=== PATIENT | male | born 1940 | race Caucasian/White ===

== ENCOUNTER → 2016-10-06 | Outpatient (CLI) | payer MEDICARE, OTHER ==
[~2016-10-06] MED LIST: AMBI12.5 PO; ATEN-100 PO; DULE200A INH; OSTETAB2 PO; PERC5TAB12 PO; SERO100T PO; SPIRCAP INH; TAB-TAB PO; ZETI10TA5 PO; ZOCO40TA PO
[2016-10-06 13:28] LABS: BACTERIA, URINE RARE /hpf; BLOOD, URINE NEG (NEG); GLUCOSE,URINE NEG (NEG); HYALINE CAST, URINE 1 /lpf (RARE); KETONE, URINE NEG (NEG); MUCUS URINE FEW /lpf (OCC); NITRITE,URINE NEG (NEG); SQUAMOUS EPITHELIAL CELL URINE <1 /hpf (0-5); URINE COLOR YELLOW (YELLW/STRAW)
[2016-10-06 13:52] LABS: MICRO ALBUMIN RANDOM URINE RAW 15.6 MG/L (0.0-30.0)
[2016-10-06 14:01] LABS: ALKALINE PHOSPHATASE 77 U/L (45-117); ALT (GPT) 42 U/L (12-78); ANION GAP 7 MEQ/L (5-15); AST (GOT) 24 U/L (15-37); BICARBONATE 28.6 MEQ/L (21.0-32.0); BLOOD UREA NITROGEN 14 MG/DL (7-18); CHLORIDE 106 MEQ/L (98-107); GLOMERULAR FILTRATION RATE 70 ML/MIN (>89); GLUCOSE,FASTING 113 MG/DL (74-99); HDL CHOLESTEROL 43.5 MG/DL (40.0-60.0); LDL CHOLESTEROL 89 MG/DL (0-99); POTASSIUM 4.8 MEQ/L (3.5-5.1); SODIUM (NA) 142 MEQ/L (136-145); TOTAL BILIRUBIN ADULT 0.5 MG/DL (0.2-1.0)
[2016-10-06 14:30] LABS: AUTOMATED NEUTROPHIL # 2.9 TH/MM3 (1.8-7.7); BASOPHIL % 0.6 % (0.0-2.0); EOSINOPHIL # 0.1 TH/MM3 (0-0.4); EOSINOPHIL % 2.3 % (0.0-4.0); HEMATOCRIT 42.4 % (39.0-51.0); HEMO FLAGS DIFF FINAL; LYMPH % 30.9 % (9.0-44.0); LYMPHOCYTE # 1.6 TH/MM3 (1.0-4.8); MEAN CELL VOLUME 91.8 FL (80.0-100.0); MEAN CORPUSCULAR HEMOGLOBIN 31.5 PG (27.0-34.0); MEAN CORPUSCULAR HGB CONC 34.3 % (32.0-36.0); MONO % 11.2 % (0.0-8.0); PLATELET COUNT 183 TH/MM3 (150-450); RED BLOOD COUNT 4.62 MIL/MM3 (4.50-5.90); RED CELL DISTRIBUTION WIDTH 13.5 % (11.6-17.2); WHITE BLOOD COUNT 5.3 TH/MM3 (4.0-11.0)
== END ==
LOC: PLAB 10:29
PROVIDERS: ATTEND Internal Medicine
DX: I25.10 Atherosclerotic heart disease of native coronary artery without angina pectoris (principal); J44.9 Chronic obstructive pulmonary disease, unspecified; E11.9 Type 2 diabetes mellitus without complications; E78.00 Pure hypercholesterolemia, unspecified; I10 Essential (primary) hypertension; M19.90 Unspecified osteoarthritis, unspecified site; Z79.899 Other long term (current) drug therapy
CPT/HCPCS: 36415; 80053; 80061; 81001; 82043; 84443; 85025

== ENCOUNTER → 2017-05-16 | Outpatient (CLI) | payer MEDICARE, OTHER ==
[2017-05-16 11:52] LABS: BLOOD, URINE NEG (NEG); GLUCOSE,URINE NEG (NEG); HYALINE CAST, URINE 3 /lpf (RARE); KETONE, URINE NEG (NEG); MUCUS URINE FEW /lpf (OCC); NITRITE,URINE NEG (NEG); PH, URINE 6.5 (5.0-8.5); TRANSITIONAL EPI CELLS, URINE <1 /hpf; URINE COLOR YELLOW (YELLW/STRAW)
[2017-05-16 11:54] LABS: COMMENT (UR) CULT NOT INDICATED; CULTURE IF INDICATED CULT NOT INDICATED
[2017-05-16 11:56] LABS: AUTOMATED NEUTROPHIL # 3.3 TH/MM3 (1.8-7.7); BASOPHIL % 0.4 % (0.0-2.0); EOSINOPHIL # 0.1 TH/MM3 (0-0.4); EOSINOPHIL % 2.1 % (0.0-4.0); HEMATOCRIT 44.1 % (39.0-51.0); LYMPH % 35.7 % (9.0-44.0); LYMPHOCYTE # 2.2 TH/MM3 (1.0-4.8); MEAN CELL VOLUME 90.2 FL (80.0-100.0); MEAN CORPUSCULAR HEMOGLOBIN 31.3 PG (27.0-34.0); MEAN CORPUSCULAR HGB CONC 34.7 % (32.0-36.0); MONO % 9.8 % (0.0-8.0); PLATELET COUNT 166 TH/MM3 (150-450); RED BLOOD COUNT 4.89 MIL/MM3 (4.50-5.90); RED CELL DISTRIBUTION WIDTH 13.2 % (11.6-17.2); WHITE BLOOD COUNT 6.3 TH/MM3 (4.0-11.0)
[2017-05-16 12:00] LABS: HEMO FLAGS AUTO DIFF
[2017-05-16 12:02] LABS: ANION GAP 6 MEQ/L (5-15); AST (GOT) 29 U/L (15-37); BICARBONATE 28.5 MEQ/L (21.0-32.0); BLOOD UREA NITROGEN 12 MG/DL (7-18); CHLORIDE 106 MEQ/L (98-107); GLOMERULAR FILTRATION RATE 72 ML/MIN (>89); GLUCOSE,FASTING 108 MG/DL (74-99); SODIUM (NA) 140 MEQ/L (136-145)
[2017-05-16 12:14] LABS: MICRO ALBUMIN RANDOM URINE RAW 19.2 MG/L (0.0-30.0)
[2017-05-16 12:14] LABS: ALKALINE PHOSPHATASE 75 U/L (45-117); ALT (GPT) 46 U/L (12-78); HDL CHOLESTEROL 43.1 MG/DL (40.0-60.0); LDL CHOLESTEROL 59 MG/DL (0-99); TOTAL BILIRUBIN ADULT 0.5 MG/DL (0.2-1.0)
[2017-05-16 12:47] LABS: PLATELET ESTIMATE SMEAR NORMAL (NORMAL); PLATELET MORPHOLOGY NORMAL (NORMAL); SCAN/DIFF AUTO DIFF CONFIRMED
[2017-05-16 14:13] LABS: HEMOGLOBIN A1a 1.2 %; HEMOGLOBIN Ao 84.5 %; HEMOGLOBIN P3 3.7 %
== END ==
LOC: PLAB 07:56
PROVIDERS: ATTEND Internal Medicine
DX: E11.9 Type 2 diabetes mellitus without complications (principal); E78.5 Hyperlipidemia, unspecified; I10 Essential (primary) hypertension
CPT/HCPCS: 36415; 80053; 80061; 81001; 82043; 83036; 84443; 85025

== ENCOUNTER → 2017-10-03 | Outpatient (CLI) | payer MEDICARE, OTHER ==
[2017-10-03 09:44] LABS: AUTOMATED NEUTROPHIL # 3.6 TH/MM3 (1.8-7.7); BASOPHIL % 0.5 % (0.0-2.0); EOSINOPHIL # 0.1 TH/MM3 (0-0.4); EOSINOPHIL % 2.2 % (0.0-4.0); HEMATOCRIT 44.2 % (39.0-51.0); HEMOGLOBIN 15.6 GM/DL (13.0-17.0); LYMPH % 34.3 % (9.0-44.0); LYMPHOCYTE # 2.3 TH/MM3 (1.0-4.8); MEAN CELL VOLUME 89.6 FL (80.0-100.0); MEAN CORPUSCULAR HEMOGLOBIN 31.6 PG (27.0-34.0); MEAN CORPUSCULAR HGB CONC 35.2 % (32.0-36.0); MEAN PLATELET VOLUME 8.2 FL (7.0-11.0); MONO % 8.9 % (0.0-8.0); MONOCYTE # 0.6 TH/MM3 (0-0.9); NEUT % 54.1 % (16.0-70.0); PLATELET COUNT 188 TH/MM3 (150-450); RED BLOOD COUNT 4.93 MIL/MM3 (4.50-5.90); RED CELL DISTRIBUTION WIDTH 13.5 % (11.6-17.2); WHITE BLOOD COUNT 6.6 TH/MM3 (4.0-11.0)
[2017-10-03 09:53] LABS: BILIRUBIN, URINE NEG (NEG); BLOOD, URINE NEG (NEG); GLUCOSE,URINE NEG (NEG); HYALINE CAST, URINE 3 /lpf (RARE); KETONE, URINE NEG (NEG); MUCUS URINE FEW /lpf (OCC); NITRITE,URINE NEG (NEG); PH, URINE 6.5 (5.0-8.5); URINE COLOR YELLOW (YELLW/STRAW); URINE LEUKOCYTE ESTERASE NEG (NEG)
[2017-10-03 10:15] LABS: AST (GOT) 40 U/L (15-37); BLOOD UREA NITROGEN 13 MG/DL (7-18); CALCIUM 9.6 MG/DL (8.5-10.1); CHLORIDE 104 MEQ/L (98-107); CREATININE 1.03 MG/DL (0.60-1.30); GLOMERULAR FILTRATION RATE 70 ML/MIN (>89); GLUCOSE,FASTING 117 MG/DL (74-99); SODIUM (NA) 138 MEQ/L (136-145)
[2017-10-03 10:16] LABS: ALT (GPT) 49 U/L (12-78); CHOLESTEROL 128 MG/DL (120-200)
[2017-10-03 10:26] LABS: ALKALINE PHOSPHATASE 72 U/L (45-117); CHOLESTEROL/ HDL RATIO 3.64 RATIO; HDL CHOLESTEROL 35.1 MG/DL (40.0-60.0); LDL CHOLESTEROL 58 MG/DL (0-99); TOTAL BILIRUBIN ADULT 0.6 MG/DL (0.2-1.0); TOTAL PROTEIN 6.9 GM/DL (6.4-8.2); TRIGLYCERIDES 176 MG/DL (42-150)
[2017-10-03 17:01] LABS: HEMOGLOBIN A1C 6.2 % (4.3-6.0)
== END ==
LOC: PLAB 07:55
DX: E78.5 Hyperlipidemia, unspecified (principal); E11.9 Type 2 diabetes mellitus without complications; I10 Essential (primary) hypertension
CPT/HCPCS: 36415; 80053; 80061; 81001; 82043; 83036; 84443; 85025

== ENCOUNTER → 2017-10-06 | Outpatient (CLI) | payer MEDICARE, OTHER | LOC: PHRSP 08:11 | PROVIDERS: ATTEND Internal Medicine | DX: J44.9 Chronic obstructive pulmonary disease, unspecified (principal) | CPT/HCPCS: 94618 ==

== ENCOUNTER 2017-12-06 11:19 | Inpatient (IN) | payer MEDICARE, OTHER ==
[2017-12-06] VITALS (13 sets, daily range): BP systolic 141–154; BP diastolic 84–100; PULSE 90–120; RESP 18–20; TEMP 97.9–98.5; O2SAT 96
[~2017-12-06] VITALS: Ht 180.3 cm; Wt 95.0 kg
[2017-12-06] MEDS ORDERED: SENNOSIDES 8.6 MG TAB PO PRN (13:15)
[2017-12-06] MEDS ORDERED: LACTULOSE SYRUP 20 GM/30 ML CUP PO PRN (13:15)
[2017-12-06] MEDS ORDERED: MAGNESIUM HYDROXIDE SUSP 30 ML CUP PO PRN ×2 (13:15→14:15)
[2017-12-06] MEDS ORDERED: SODIUM CHLORIDE 0.9% FLUSH 10 ML FLUSH IV FLUSH PRN (13:15)
[2017-12-06] MEDS ORDERED: NALOXONE HCL 0.4 MG/ML AMP IV PUSH PRN (13:15)
[2017-12-06] MEDS ORDERED: BISACODYL 10 MG SUPP RECTAL PRN (13:15)
[2017-12-06 13:58] LABS: AUTOMATED NEUTROPHIL # 5.5 TH/MM3 (1.8-7.7); BASOPHIL % 0.4 % (0.0-2.0); EOSINOPHIL # 0.2 TH/MM3 (0-0.4); EOSINOPHIL % 2.1 % (0.0-4.0); HEMATOCRIT 45.4 % (39.0-51.0); HEMOGLOBIN 15.8 GM/DL (13.0-17.0); LYMPH % 26.8 % (9.0-44.0); LYMPHOCYTE # 2.5 TH/MM3 (1.0-4.8); MEAN CELL VOLUME 90.9 FL (80.0-100.0); MEAN CORPUSCULAR HEMOGLOBIN 31.7 PG (27.0-34.0); MEAN CORPUSCULAR HGB CONC 34.8 % (32.0-36.0); MEAN PLATELET VOLUME 7.4 FL (7.0-11.0); MONO % 10.8 % (0.0-8.0); NEUT % 59.9 % (16.0-70.0); PLATELET COUNT 202 TH/MM3 (150-450); RED CELL DISTRIBUTION WIDTH 14.1 % (11.6-17.2); WHITE BLOOD COUNT 9.2 TH/MM3 (4.0-11.0)
--- NOTE | 2017-12-06 14:14 | RADRPT ---
EXAM DATE/TIME: 12/06/2017 13:46 [place] COMPARISON: No previous studies available for comparison. INDICATIONS : Evaluate diaphragm. Patient states he has had increased heart rate off and on x 1 year, but has incre ased in last 2 days since patient had a colonoscopy, MEDICAL HISTORY : None. SURGICAL HISTORY : None. ENCOUNTER: Initial ACUITY: >1 year PAIN SCORE: 0/10 LOCATION: Bilateral chest FINDINGS: A single view of the chest demonstrates the lungs to be symmetrically aerated without evidence of mas s, infiltrate or effusion. The cardiomediastinal contours are unremarkable. Osseous structures are intact. CONCLUSION: No acute disease. Stanton Gurrola MD on December 06, 2017 at 14:11 Board Certified Radiologist. This report was verified electronically.
[2017-12-06] MEDS ORDERED: ALUMINUM/MAGNESIUM/SIMETH 30 ML CUP PO PRN (14:15)
[2017-12-06] MEDS ORDERED: TEMAZEPAM 15 MG CAP PO PRN (14:15)
[2017-12-06] MEDS ORDERED: ACETAMINOPHEN 325 MG TAB PO PRN (14:15)
[2017-12-06] MEDS ORDERED: HEPARIN-D5W 25,000 U/250 ML 250 ML IV PRN ×3 (14:30→17:00)
[2017-12-06] MEDS ORDERED: HEPARIN SODIUM - IV 10,000 UNITS/10 ML VIAL IV ONE ×2 (14:30→16:30)
--- NOTE | 2017-12-06 14:46 | HHI.HP ---
HPI Service [facility] Primary Care Physician Non-Staff Admission Diagnosis Diagnoses: Travel History International Travel<30 Days: No Contact w/Intl Traveler <30 Da: No History of Present Illness 77-year-old male with history of SVT, hypertension, COPD who presents with a 1 day history of tachycardia, lightheadedness. He is sent in by cardiology as a direct admit for new onset atrial fibrillation. Patient had a colonoscopy yesterday, reportedly had episode of tachycardia in the 130s after procedure, which came down to 90s after taking an extra atenolol. Patient denies any chest pain or shortness of breath. He does feel lightheaded, and somewhat generally fatigued. Denies any fevers, chills, chest pain, nausea, vomiting Review of Systems Performed and negative except for HPI and past medical history. 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 Reported Medications Cardizem CD 180 mg daily Atenolol 50 mg daily Aspirin 81 mg daily Spiriva HandiHaler 18 mcg once daily Dulera 1005 mcg/ACT aerosol twice a day Seroquel 100 mg at bedtime Ambien CR 12 point 5 at night Gabapentin 100 mg at bedtime Rosuvastatin 10 mg once a day Vitamin B12 1000 mcg daily. Allergies: Coded Allergies: hydrocodone (Unverified Allergy, Severe, severe itching-feels like bugs under skin, 04/05/17) MAY TAKE HYDROCODONE IF PRE MEDICATED WITH BENADRYL Family History Family history reviewed with patient and found to be currently noncontributory. Social History Patient smoked 2 packs per day for 44 years, quitting in 1997. Patient quit drinking alcohol in 1983. Denies any illicit drugs. Physical Exam Physical Exam GENERAL: This is a well-nourished, well-developed patient, in no apparent distress. SKIN: No rashes, ecchymoses or lesions. Cool and dry. HEAD: Atraumatic. Normocephalic. No temporal or scalp tenderness. EYES: Pupils equal round and reactive. Extraocular motions intact. No scleral icterus. No injection or drainage. ENT: Nose without bleeding, purulent drainage or septal hematoma. Throat without erythema, tonsillar hypertrophy or exudate. Uvula midline. Airway patent. NECK: Trachea midline. No JVD or lymphadenopathy. Patient with very tender right neck, precluding examination. No erythema. Patient reports this is chronic. Left side supple, nontender, no meningeal signs. CARDIOVASCULAR: Irregularly irregular rhythm. Tachycardic. No murmurs, gallops , or rubs. RESPIRATORY: Clear to auscultation. Breath sounds equal bilaterally. No wheezes , rales, or rhonchi. GASTROINTESTINAL: Abdomen soft, non-tender, nondistended. No hepato-splenomegaly , or palpable masses. No guarding. MUSCULOSKELETAL: Extremities without clubbing, cyanosis, or edema. No joint tenderness, effusion, or edema noted. No calf tenderness. Negative Homans sign bilaterally. NEUROLOGICAL: Awake and alert. Cranial nerves II through XII intact. Motor and sensory grossly within normal limits. Five out of 5 muscle strength in all muscle groups. Normal speech. Laboratory Laboratory Tests Test 12/06/17 13:44 White Blood Count 9.2 Red Blood Count 5.00 Hemoglobin 15.8 Hematocrit 45.4 Mean Corpuscular Volume 90.9 Mean Corpuscular Hemoglobin 31.7 Mean Corpuscular Hemoglobin Concent 34.8 Red Cell Distribution Width 14.1 Platelet Count 202 Mean Platelet Volume 7.4 Neutrophils (%) (Auto) 59.9 Lymphocytes (%) (Auto) 26.8 Monocytes (%) (Auto) 10.8 Eosinophils (%) (Auto) 2.1 Basophils (%) (Auto) 0.4 Neutrophils # (Auto) 5.5 Lymphocytes # (Auto) 2.5 Monocytes # (Auto) 1.0 Eosinophils # (Auto) 0.2 Basophils # (Auto) 0.0 CBC Comment DIFF FINAL Differential Comment Result Diagram: 12/06/17 1344 Caprini VTE Risk Assessment Caprini VTE Risk Assessment: Mod/High Risk (score >= 2) Caprini Risk Assessment Model Point Value = 1 Point Value = 2 Point Value = 3 Point Value = 5 Age 41-60 Minor surgery BMI > 25 kg/m2 Swollen legs Varicose veins or History of unexplained or recurrent spontaneous Oral contraceptives or hormone replacement Sepsis (< 1 month) Serious lung disease, including pneumonia (< 1 month) Abnormal pulmonary function Acute myocardial infarction Congestive heart failure (< 1 month) History of inflammatory bowel disease Medical patient at bed rest Age 61-74 Arthroscopic surgery Major open surgery (> 45 min) Laparoscopic surgery (> 45 min) Malignancy Confined to bed (> 72 hours) Immobilizing plaster cast Central venous access Age >= 75 History of VTE Family history of VTE Factor V Leiden Prothrombin [id number] Lupus anticoagulant Anticardiolipin antibodies Elevated serum homocysteine Heparin-induced thrombocytopenia Other congenital or acquired thrombophilia Stroke (< 1 month) Elective arthroplasty Hip, pelvis, or leg fracture Acute spinal cord injury (< 1 month) Prophylaxis Regimen Total Risk Factor Score Risk Level Prophylaxis Regimen 0-1 Low Early ambulation 2 Moderate Order ONE of the following: *Sequential Compression Device (SCD) *Heparin 5000 units SQ BID 3-4 Higher Order ONE of the following medications: *Heparin 5000 units SQ TID *Enoxaparin/Lovenox 40 mg SQ daily (WT < 150 kg, CrCl > 30 mL/min) *Enoxaparin/Lovenox 30 mg SQ daily (WT < 150 kg, CrCl > 10-29 mL/min) *Enoxaparin/Lovenox 30 mg SQ BID (WT < 150 kg, CrCl > 30 mL/min) AND/OR *Sequential Compression Device (SCD) 5 or more Highest Order ONE of the following medications: *Heparin 5000 units SQ TID (Preferred with Epidurals) *Enoxaparin/Lovenox 40 mg SQ daily (WT < 150 kg, CrCl > 30 mL/min) *Enoxaparin/Lovenox 30 mg SQ daily (WT < 150 kg, CrCl > 10-29 mL/min) *Enoxaparin/Lovenox 30 mg SQ BID (WT < 150 kg, CrCl > 30 mL/min) AND *Sequential Compression Device (SCD) Assessment and Plan Assessment and Plan //New onset atrial fibrillation -Chest x-ray ordered and no acute findings. EKG ordered and pending. Stat labs. Start heparin drip. Pending home medications to be entered. Cardiology consulted. Appreciate assistance. Start on heparin drip. //Hypertension. Blood pressures septal. Continue home medications //COPD. Continue home inhalers //Hyperlipidemia. Chronic. Continue home medications when reconciled. Discussed Condition With Patient, nurse, Dr. Hanson Physician Certification 2 Midnight Certification Type: Admission for Inpatient Services Order for Inpatient Services The services are ordered in accordance with Medicare regulations or non- Medicare payer requirements, as applicable. In the case of services not specified as inpatient-only, they are appropriately provided as inpatient services in accordance with the 2-midnight benchmark. Estimated LOS (days): 2 days is the estimated time the patient will need to remain in the hospital, assuming treatment plan goals are met and no additional complications. Post-Hospital Plan: Not yet determined Joel Blackmon MD Dec 06, 2017 14:46
[2017-12-06] MEDS ORDERED: RESP: IPRATROPIUM 0.5 MG/2.5 ML NEB NEB PRN (15:00)
[2017-12-06] MEDS ORDERED: DILTIAZEM HCL 25 MG/5 ML VIAL IV PUSH ONE (15:00)
[2017-12-06] MEDS ORDERED: DILTIAZEM INJ 125 MG in SODIUM CHLORIDE 0.9% INJ 100 ML IV PRN (15:00)
[2017-12-06] MEDS ORDERED: XARE10TA PO (15:55)
[2017-12-06] MEDS ORDERED: HEPARIN SODIUM - IV 10,000 UNITS/10 ML VIAL IV PRN ×3 (16:30→20:30)
[2017-12-06] MEDS ORDERED: METOPROLOL TARTRATE 5 MG/5 ML VIAL IV PUSH PRN (16:30)
[2017-12-06 18:45] LABS: HEMATOCRIT 41.6 % (39.0-51.0); HEMOGLOBIN 14.4 GM/DL (13.0-17.0); MEAN CELL VOLUME 90.2 FL (80.0-100.0); MEAN CORPUSCULAR HEMOGLOBIN 31.3 PG (27.0-34.0); MEAN CORPUSCULAR HGB CONC 34.7 % (32.0-36.0); MEAN PLATELET VOLUME 7.7 FL (7.0-11.0); PLATELET COUNT 190 TH/MM3 (150-450); RED BLOOD COUNT 4.62 MIL/MM3 (4.50-5.90); RED CELL DISTRIBUTION WIDTH 14.2 % (11.6-17.2); WHITE BLOOD COUNT 7.8 TH/MM3 (4.0-11.0)
[2017-12-06 19:05] LABS: INTERNATIONAL NORMALIZED RATIO 1.2 RATIO; PROTHROMBIN TIME - PATIENT 12.2 SEC (9.8-11.6)
[2017-12-06 19:19] LABS: BILIRUBIN, URINE NEG (NEG); BLOOD, URINE NEG (NEG); GLUCOSE,URINE NEG (NEG); HYALINE CAST, URINE 5 /lpf (RARE); KETONE, URINE NEG (NEG); MUCUS URINE FEW /lpf (OCC); NITRITE,URINE NEG (NEG); URINE COLOR YELLOW (YELLW/STRAW); URINE LEUKOCYTE ESTERASE NEG (NEG)
[2017-12-06] MEDS ORDERED: FORMOTEROL INH SCH (21:00)
[2017-12-06] MEDS ORDERED: MOMETASONE INH SCH (21:00)
[2017-12-06] MEDS: QUEtiapine FUMARATE 100 MG TAB PO SCH (21:29)
[2017-12-06] MEDS: METOPROLOL TARTRATE 25 MG TAB PO SCH (21:29)
[2017-12-06] MEDS: ZOLPIDEM TARTRATE 10 MG TAB PO PRN (21:30)
[2017-12-06] MEDS: ACETAMINOPHEN/CODEINE 300 MG/30 MG TAB PO PRN (21:30)
[2017-12-06] MEDS: SODIUM CHLORIDE 0.9% FLUSH 10 ML FLUSH IV FLUSH SCH (21:31)
[2017-12-06 22:09] LABS: ALBUMIN 3.5 GM/DL (3.4-5.0); AST (GOT) 41 U/L (15-37); BICARBONATE 26.6 MEQ/L (21.0-32.0); BLOOD UREA NITROGEN 15 MG/DL (7-18); CALCIUM 8.9 MG/DL (8.5-10.1); CHLORIDE 106 MEQ/L (98-107); CREATININE 1.01 MG/DL (0.60-1.30); GLOMERULAR FILTRATION RATE 72 ML/MIN (>89); GLUCOSE,RANDOM 88 MG/DL (74-106); SODIUM (NA) 140 MEQ/L (136-145)
[2017-12-06 22:10] LABS: ALT (GPT) 56 U/L (12-78)
[2017-12-06 22:12] LABS: ALKALINE PHOSPHATASE 73 U/L (45-117); TOTAL BILIRUBIN ADULT 0.6 MG/DL (0.2-1.0); TOTAL PROTEIN 6.5 GM/DL (6.4-8.2)
[2017-12-07] VITALS (33 sets, daily range): BP systolic 101–152; BP diastolic 65–97; PULSE 54–94; RESP 16–20; TEMP 97.5–98.2; O2SAT 92–97
[2017-12-07 03:58] LABS: AUTOMATED NEUTROPHIL # 3.2 TH/MM3 (1.8-7.7); BASOPHIL % 0.6 % (0.0-2.0); EOSINOPHIL # 0.2 TH/MM3 (0-0.4); EOSINOPHIL % 3.2 % (0.0-4.0); HEMATOCRIT 40.5 % (39.0-51.0); HEMOGLOBIN 14.1 GM/DL (13.0-17.0); LYMPH % 27.5 % (9.0-44.0); LYMPHOCYTE # 1.5 TH/MM3 (1.0-4.8); MEAN CELL VOLUME 89.8 FL (80.0-100.0); MEAN CORPUSCULAR HEMOGLOBIN 31.2 PG (27.0-34.0); MEAN CORPUSCULAR HGB CONC 34.8 % (32.0-36.0); MEAN PLATELET VOLUME 7.4 FL (7.0-11.0); MONO % 10.6 % (0.0-8.0); MONOCYTE # 0.6 TH/MM3 (0-0.9); NEUT % 58.1 % (16.0-70.0); PLATELET COUNT 157 TH/MM3 (150-450); RED BLOOD COUNT 4.51 MIL/MM3 (4.50-5.90); WHITE BLOOD COUNT 5.4 TH/MM3 (4.0-11.0)
[2017-12-07 04:21] LABS: ALBUMIN 3.3 GM/DL (3.4-5.0); AST (GOT) 36 U/L (15-37); BICARBONATE 26.8 MEQ/L (21.0-32.0); BLOOD UREA NITROGEN 12 MG/DL (7-18); CALCIUM 8.6 MG/DL (8.5-10.1); CHLORIDE 107 MEQ/L (98-107); CREATININE 0.96 MG/DL (0.60-1.30); GLOMERULAR FILTRATION RATE 76 ML/MIN (>89); GLUCOSE,RANDOM 97 MG/DL (74-106); SODIUM (NA) 141 MEQ/L (136-145)
[2017-12-07 04:26] LABS: ALKALINE PHOSPHATASE 67 U/L (45-117); ALT (GPT) 50 U/L (12-78); TOTAL BILIRUBIN ADULT 0.6 MG/DL (0.2-1.0); TOTAL PROTEIN 6.1 GM/DL (6.4-8.2)
[2017-12-07] MEDS ORDERED: RIVAROXABAN 10 MG TAB PO SCH (09:00)
[2017-12-07] MEDS: TIOTROPIUM BROMIDE 18 MCG INH INH SCH (09:08)
[2017-12-07] MEDS: ASPIRIN EC 81 MG TABEC PO SCH (09:09)
[2017-12-07] MEDS: SODIUM CHLORIDE 0.9% FLUSH 10 ML FLUSH IV FLUSH SCH ×2 (09:09→20:40)
[2017-12-07] MEDS: METOPROLOL TARTRATE 25 MG TAB PO SCH (09:09)
[2017-12-07] MEDS: DILTIAZEM-CD 180 MG CAP ER PO SCH (11:30)
--- NOTE | 2017-12-07 12:05 | PD.CONS ---
HPI Service Cardiology-Dr. Hanson Consult Requested By Dr. Blackmon Reason for Consult New onset atrial fibrillation Primary Care Physician Non-Staff History of Present Illness 77 year old male well known to our practice, presented to our office yesterday following recent colonoscopy with complaints of racing heart. EKG during colonoscopy showed new onset atrial fibrillation. EKG completed in office yesterday revealed new onset Afib RVR. Patient was a direct admit. He was started on a heparin drip by Dr. Blackmon. Today he is resting in bed comfortably. He denies any increase in SOB or chest pain. court recording monitor reveals that he converted to SR HR 60s around 0800. 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 Ford. (Marylin Villasenor) Review of Systems Consitutional: DENIES: Fatigue, Fever, Chills, Weight gain, Weight loss Eyes: DENIES: Amaurosis Fugax, Change in vision HEENT: DENIES: Lightheadedness, Change in hearing Respiratory: COMPLAINS OF: See HPI Cardiovascular: COMPLAINS OF: See HPI Gastrointestinal: DENIES: Nausea, Vomiting, Change in bowel habits, Reflux, Bloody stools, Melena Genitourinary: DENIES: Urinary incontinence, Difficulty voiding Integumentary: DENIES: Rash Neurologic: DENIES: Tingling or numbness, Memory problems, Poor Balance, Stroke symptoms Musculoskeletal: DENIES: Joint pain, Muscle pain, Limited range of motion, Back pain Psychiatric: DENIES: Anxiety, Depression, Sleep disturbances Hematologic: DENIES: Bruising tendencies, Bleeding tendencies (Marylin Villasenor) Past Family Social History Allergies: Coded Allergies: hydrocodone (Unverified Allergy, Severe, severe itching-feels like bugs under skin, 04/05/17) MAY TAKE HYDROCODONE IF PRE MEDICATED WITH BENADRYL Past Medical History SVT Chest pain COPD-oxygen dependent HTN Hyperlipidemia Past Surgical History Mio removed from right wrist 06/2016 Right side 13 lymph nodes removed 01/2015 Cervical spine fusion 2004 Left rotator cuff surgery 2004 Left eye surgery 2003 Left knee surgery 2000, 2001, 2002, 2003 Tonsilectomy 1995 Skin cancer removal Colon polyps Reported Medications Reported Meds & Active Scripts Active Reported Percocet 5-325 mg (Oxycodone/Acetaminophen) Oxycodone 5/325 Acetaminophen Tab 1 Tab PO Q4H PRN Zocor 40 mg (Simvastatin) 40 Mg Tab 20 Tab PO HS Osteo Bi-Flex Advanced Tr ([facility]) Advanced Tab 1 Tab PO DAILY Dulera 200 mcg/dose (Mometasone Furoate-Formoterol 200 mcg/dose) 1 Aer Aer 2 Puff INH BID Ambien Cr (Zolpidem Tartrate) 12.5 Mg Tab 12.5 Mg PO HS Atenolol 25 Mg Tab 50 Mg PO HS Multivitamin (Multivitamins) 1 Tab Tab 1 Tab PO DAILY Seroquel (Quetiapine Fumarate) 100 Mg Tab 100 Mg PO HS Spiriva Handihaler (Tiotropium [place]) 18 Mcg Cap 18 Mcg INH DAILY Active Ordered Medications Current Medications Medications (Trade) Dose Ordered Sig/Moi Route Start Time Stop Time Status Last Admin (NS Flush) 2 ml UNSCH PRN IV FLUSH 12/06/17 13:15 (NS Flush) 2 ml BID IV FLUSH 12/06/17 21:00 12/07/17 09:09 (Narcan Inj) 0.4 mg UNSCH PRN IV PUSH 12/06/17 13:15 (Senokot) 17.2 mg Q12H PRN PO 12/06/17 13:15 (Dulcolax Supp) 10 mg DAILY PRN RECTAL 12/06/17 13:15 (Lactulose Liq) 30 ml DAILY PRN PO 12/06/17 13:15 (Milk Of Magnesia Liq) 30 ml Q2H PRN PO 12/06/17 14:15 (Mag-Al Plus Susp Liq) 30 ml Q2H PRN PO 12/06/17 14:15 (Tylenol-Codeine #3) 2 tab Q4H PRN PO 12/06/17 14:15 12/06/17 21:30 (Tylenol) 650 mg Q4H PRN PO 12/06/17 14:15 Patient Own Medication PT OWN MED: DULERA 100-5M... BID INH 12/06/17 21:00 Future Hold (Spiriva Inh) 18 mcg DAILY INH 12/07/17 09:00 12/07/17 09:08 (Atrovent Neb) 0.5 mg Q4HR NEB PRN NEB 12/06/17 15:00 (Ecotrin Ec) 81 mg DAILY PO 12/07/17 09:00 12/07/17 09:09 (SEROquel) 100 mg HS PO 12/06/17 21:00 12/06/17 21:29 (Lopressor Inj) 5 mg Q5M PRN IV PUSH 12/06/17 16:30 (Lopressor) 75 mg Q12HR PO 12/06/17 21:00 12/07/17 09:09 (Ambien) 10 mg HS PRN PO 12/06/17 21:00 12/06/17 21:30 (Eliquis) 5 mg BID PO 12/07/17 21:00 (Cardizem Cd) 180 mg DAILY PO 12/07/17 11:30 12/07/17 11:30 Family History Unknown Social History Former smoker, quit 2000 No ETOH use ([place],November Belinda SERRATO) Physical Exam Vital Signs Vital Signs Date Time Temp Pulse Resp B/P (MAP) Pulse Ox O2 Delivery O2 Flow Rate FiO2 12/07/17 10:12 92 Nasal Cannula 2.00 12/07/17 07:45 97.5 65 18 137/97 (110) 97 12/07/17 06:11 75 12/07/17 05:25 76 12/07/17 04:00 74 12/07/17 03:50 97.9 85 20 110/87 (95) 96 12/07/17 03:00 70 12/07/17 02:00 82 12/07/17 01:00 86 12/07/17 00:00 98.2 91 20 101/71 (81) 96 12/07/17 00:00 94 12/06/17 23:00 94 12/06/17 22:37 19 12/06/17 22:00 108 12/06/17 21:00 102 12/06/17 20:25 98.5 90 20 154/87 (109) 96 12/06/17 20:00 120 12/06/17 19:00 93 12/06/17 18:01 96 12/06/17 17:00 102 12/06/17 16:01 120 12/06/17 15:45 97.9 110 18 143/100 (114) 12/06/17 15:00 107 12/06/17 14:00 106 12/06/17 13:30 97.9 107 18 141/84 (103) Physical Exam GENERAL: well developed, well nourished elderly male, oxygen dependent SKIN: Warm and dry. HEAD: Atraumatic. Normocephalic. EYES: No injection or drainage. ENT: No nasal bleeding or discharge. Mucous membranes pink and moist. NECK: Trachea midline. No JVD. CARDIOVASCULAR: Regular rate and rhythm. SR HR 69 RESPIRATORY: Diminished throughout, oxygen dependent GASTROINTESTINAL: Abdomen soft, non-tender, nondistended. Hepatic and splenic margins not palpable. MUSCULOSKELETAL: Extremities without clubbing, cyanosis, or edema. No obvious deformities. NEUROLOGICAL: Awake and alert. No obvious cranial nerve deficits. Motor grossly within normal limits. Five out of 5 muscle strength in the arms and legs. Normal speech. PSYCHIATRIC: Appropriate mood and affect; insight and judgment normal. Laboratory Laboratory Tests Test 12/06/17 13:44 12/06/17 14:51 12/06/17 17:00 12/06/17 17:21 White Blood Count 9.2 7.8 Red Blood Count 5.00 4.62 Hemoglobin 15.8 14.4 Hematocrit 45.4 41.6 Mean Corpuscular Volume 90.9 90.2 Mean Corpuscular Hemoglobin 31.7 31.3 Mean Corpuscular Hemoglobin Concent 34.8 34.7 Red Cell Distribution Width 14.1 14.2 Platelet Count 202 190 Mean Platelet Volume 7.4 7.7 Neutrophils (%) (Auto) 59.9 Lymphocytes (%) (Auto) 26.8 Monocytes (%) (Auto) 10.8 Eosinophils (%) (Auto) 2.1 Basophils (%) (Auto) 0.4 Neutrophils # (Auto) 5.5 Lymphocytes # (Auto) 2.5 Monocytes # (Auto) 1.0 Eosinophils # (Auto) 0.2 Basophils # (Auto) 0.0 CBC Comment DIFF FINAL Differential Comment Activated Partial Thromboplast Time 24.2 Urine Color YELLOW Urine Turbidity CLEAR Urine pH 7.0 Urine Specific Brant 1.015 Urine Protein TRACE Urine Glucose (UA) NEG Urine Ketones NEG Urine Occult Blood NEG Urine Nitrite NEG Urine Bilirubin NEG Urine Urobilinogen LESS THAN 2.0 Urine Leukocyte Esterase NEG Urine WBC 1 Urine Hyaline Casts 5 Urine Mucus FEW Microscopic Urinalysis Comment CULT NOT INDICATED Prothrombin Time 12.2 Prothromb Time International Ratio 1.2 Test 4/17/18 21:22 12/07/17 03:36 Activated Partial Thromboplast Time 81.9 64.7 Blood Urea Nitrogen 15 12 Creatinine 1.01 0.96 Random Glucose 88 97 Total Protein 6.5 6.1 Albumin 3.5 3.3 Calcium Level 8.9 8.6 Alkaline Phosphatase 73 67 Aspartate Amino Transf (AST/SGOT) 41 36 Alanine Aminotransferase (ALT/SGPT) 56 50 Total Bilirubin 0.6 0.6 Sodium Level 140 141 Potassium Level 3.8 3.8 Chloride Level 106 107 Carbon Dioxide Level 26.6 26.8 Anion Gap 7 7 Estimat Glomerular Filtration Rate 72 76 White Blood Count 5.4 Red Blood Count 4.51 Hemoglobin 14.1 Hematocrit 40.5 Mean Corpuscular Volume 89.8 Mean Corpuscular Hemoglobin 31.2 Mean Corpuscular Hemoglobin Concent 34.8 Red Cell Distribution Width 14.0 Platelet Count 157 Mean Platelet Volume 7.4 Neutrophils (%) (Auto) 58.1 Lymphocytes (%) (Auto) 27.5 Monocytes (%) (Auto) 10.6 Eosinophils (%) (Auto) 3.2 Basophils (%) (Auto) 0.6 Neutrophils # (Auto) 3.2 Lymphocytes # (Auto) 1.5 Monocytes # (Auto) 0.6 Eosinophils # (Auto) 0.2 Basophils # (Auto) 0.0 CBC Comment DIFF FINAL Differential Comment (Marylin Villasenor) Result Diagram: 12/07/17 0336 12/07/17 0336 Imaging Last 48 hours Impressions Chest X-Ray 12/06/17 0000 Signed Impressions: Service Date/Time: Wednesday, December 06, 2017 13:46 - CONCLUSION: No acute disease. Stanton Gurrola MD (Marylin Villasenor) Assessment and Plan Assessment and Plan New Onset atrial fibrillation HTN COPD Plan -Pt converted to SR. CHADS VASC is 3. Will DC heparin drip and start on eliquis 5 mg PO BID. Will also resume home Cardizem CD 180mg PO qday, Atenolol 25mg qday , and start on Multaq 400mg BID. Will check mag level and TSH. Will continue to observe overnight, if stable will plan to DC tomorrow. -BP is controlled -Continue home inhalers and continous o2. The patient was seen and evaluated by Dr. Hanson who completed face to face encounter and phyical exam and participated in management and decision making. Discussed Condition With Misti ESCOBEDO (Marylin Villasenor) Assessment and Plan The exam, history, and the medical decision-making described in the above note were completed with the assistance of the mid-level provider. I reviewed and agree with the findings presented. I attest that I had a [id number] encounter with the patient on the same day, and personally performed and documented my assessment and findings in the medical record. Will start on Multaq. (Sonia Hanson MD) Marylin Villasenor Dec 07, 2017 12:05 Sonia Hanson MD Dec 07, 2017 14:25
[2017-12-07 14:05] LABS: MAGNESIUM 2.1 MG/DL (1.5-2.5)
[2017-12-07] MEDS: ATENOLOL 25 MG TAB PO SCH (14:06)
--- NOTE | 2017-12-07 17:56 | HHI.PR ---
Subjective Remarks States his heart rate returned to normal overnight and he is feeling well at this time. He is worried about the overall pattern of his attacks of atrial fibrillation that have become more frequent over the last couple months. He is also worried about increased ankle edema around the same timeframe. Objective Vitals Vital Signs Date Time Temp Pulse Resp B/P (MAP) Pulse Ox O2 Delivery O2 Flow Rate FiO2 12/07/17 16:00 62 12/07/17 15:30 97.8 70 18 149/94 (112) 95 12/07/17 15:00 68 12/07/17 14:02 66 12/07/17 13:00 68 12/07/17 12:00 72 12/07/17 11:14 97.6 72 16 118/97 (104) 95 12/07/17 11:00 69 12/07/17 10:12 92 Nasal Cannula 2.00 12/07/17 10:00 66 12/07/17 09:00 72 12/07/17 08:00 54 12/07/17 07:45 97.5 65 18 137/97 (110) 97 12/07/17 07:01 54 12/07/17 06:39 74 12/07/17 06:11 75 12/07/17 05:25 76 12/07/17 04:00 74 12/07/17 03:50 97.9 85 20 110/87 (95) 96 12/07/17 03:00 70 12/07/17 02:00 82 12/07/17 01:00 86 12/07/17 00:00 98.2 91 20 101/71 (81) 96 12/07/17 00:00 94 12/06/17 23:00 94 12/06/17 22:37 19 12/06/17 22:00 108 12/06/17 21:00 102 12/06/17 20:25 98.5 90 20 154/87 (109) 96 12/06/17 20:00 120 12/06/17 19:00 93 12/06/17 18:01 96 I/O 12/06/17 12/06/17 12/06/17 12/07/17 12/07/17 12/07/17 07:00 15:00 23:00 07:00 15:00 23:00 Intake Total 480 ml 560 ml Output Total 250 ml 675 ml Balance 230 ml -115 ml Intake Oral 480 ml 560 ml Output Urine Total 250 ml 675 ml # Voids 1 Result Diagram: 12/07/17 0336 12/07/17 0336 Objective Remarks GENERAL: Obese, well-developed patient. SKIN: Warm and dry. HEAD: Normocephalic. EYES: No scleral icterus. No injection or drainage. NECK: Supple, trachea midline. No JVD or lymphadenopathy. CARDIOVASCULAR: Regular rate and rhythm without murmurs, gallops, or rubs. RESPIRATORY: Breath sounds equal bilaterally. No accessory muscle use. GASTROINTESTINAL: Abdomen soft, non-tender, nondistended. EXTREMITIES: No cyanosis, or edema. NEUROLOGICAL: Awake, alert, and oriented x 3. Non-focal. A/P Assessment and Plan Atrial fibrillation with RVR Increased frequency over the last 2 months, previous episodes in the distant past Resolved with IV Cardizem, converted to p.o. medication successfully Continue with Cardizem, atenolol, Multitaq Cardiology recommending we watch him overnight Possible discharge in the morning Appreciate cardiology consult Hypertension Continue home meds COPD Continue home inhalers DVT prophylaxis Tc Diaz MD Dec 07, 2017 17:56
[2017-12-07] MEDS: DRONEDARONE 400 MG TAB PO SCH (20:39)
[2017-12-07] MEDS: QUEtiapine FUMARATE 100 MG TAB PO SCH (20:40)
[2017-12-07] MEDS: APIXABAN 5 MG TABLET PO SCH (20:40)
[2017-12-07] MEDS: ACETAMINOPHEN/CODEINE 300 MG/30 MG TAB PO PRN (20:40)
[2017-12-07] MEDS: ZOLPIDEM TARTRATE 10 MG TAB PO PRN (20:45)
--- NOTE | 2017-12-07 23:05 | EKG ---
Date Performed: 12/06/2017 Time Performed: 14:18:50 PTAGE: 77 years EKG: Atrial fibrillation with rapid ventricular response with PVC(s) or aberrant ventricular con duction LVH with secondary repolarization abnormality Extensive ST-T changes Abnormal ECG PREVIOUS TRACING : 01/08/2015 11.49 Compared to previous tracing, SR no longer present DOCTOR: Sarah Corbin Interpretating Date/Time 12/07/2017 23:04:00
[2017-12-08] VITALS (19 sets, daily range): BP systolic 110–135; BP diastolic 68–89; PULSE 55–74; RESP 16–18; TEMP 97.6–98.2; O2SAT 93–95
[2017-12-08] MEDS: ASPIRIN EC 81 MG TABEC PO SCH ×2 (09:00→10:33)
--- NOTE | 2017-12-08 10:23 | PD.CARD.PN ---
Subjective Subjective Remarks Patient resting in bed, no complaints. Denies chest pain or any rapid heart rates. Continues on oxygen. He states he is ready to go home. (Marylin Villasenor) Objective Medications Current Medications Medications (Trade) Dose Ordered Sig/Moi Route Start Time Stop Time Status Last Admin (NS Flush) 2 ml UNSCH PRN IV FLUSH 12/06/17 13:15 (NS Flush) 2 ml BID IV FLUSH 12/06/17 21:00 12/07/17 20:40 (Narcan Inj) 0.4 mg UNSCH PRN IV PUSH 12/06/17 13:15 (Senokot) 17.2 mg Q12H PRN PO 12/06/17 13:15 (Dulcolax Supp) 10 mg DAILY PRN RECTAL 12/06/17 13:15 (Lactulose Liq) 30 ml DAILY PRN PO 12/06/17 13:15 (Milk Of Magnesia Liq) 30 ml Q2H PRN PO 12/06/17 14:15 (Mag-Al Plus Susp Liq) 30 ml Q2H PRN PO 12/06/17 14:15 (Tylenol-Codeine #3) 2 tab Q4H PRN PO 12/06/17 14:15 12/07/17 20:40 (Tylenol) 650 mg Q4H PRN PO 12/06/17 14:15 Patient Own Medication PT OWN MED: DULERA 100-5M... BID INH 12/06/17 21:00 Future Hold (Spiriva Inh) 18 mcg DAILY INH 12/07/17 09:00 12/07/17 09:08 (Atrovent Neb) 0.5 mg Q4HR NEB PRN NEB 12/06/17 15:00 (Ecotrin Ec) 81 mg DAILY PO 12/07/17 09:00 12/07/17 09:09 (SEROquel) 100 mg HS PO 12/06/17 21:00 12/07/17 20:40 (Lopressor Inj) 5 mg Q5M PRN IV PUSH 12/06/17 16:30 (Ambien) 10 mg HS PRN PO 12/06/17 21:00 12/07/17 20:45 (Eliquis) 5 mg BID PO 12/07/17 21:00 4/18/18 20:40 (Cardizem Cd) 180 mg DAILY PO 12/07/17 11:30 12/07/17 11:30 (Tenormin) 25 mg DAILY PO 12/07/17 11:45 12/07/17 14:06 (Multaq) 400 mg BID PO 12/07/17 21:00 12/07/17 20:39 Vital Signs / I&O Vital Signs Date Time Temp Pulse Resp B/P (MAP) Pulse Ox O2 Delivery O2 Flow Rate FiO2 12/08/17 07:53 97.6 61 16 135/86 (102) 95 12/08/17 06:05 55 12/08/17 05:05 56 12/08/17 04:17 57 12/08/17 03:28 98.2 64 18 110/68 (82) 95 12/08/17 03:00 60 12/08/17 02:20 56 12/08/17 01:00 62 12/08/17 00:16 63 12/07/17 23:51 97.8 61 19 103/65 (78) 92 12/07/17 23:00 63 12/07/17 22:15 19 12/07/17 22:00 68 12/07/17 21:00 68 12/07/17 20:28 97.6 64 19 152/93 (112) 94 12/07/17 20:00 60 12/07/17 19:46 95 Nasal Cannula 2.00 12/07/17 19:00 64 12/07/17 18:15 58 12/07/17 17:56 58 12/07/17 16:00 62 12/07/17 15:30 97.8 70 18 149/94 (112) 95 12/07/17 15:00 68 12/07/17 14:02 66 12/07/17 13:00 68 12/07/17 12:00 72 12/07/17 11:14 97.6 72 16 118/97 (104) 95 12/07/17 11:00 69 I/O 12/07/17 12/07/17 12/07/17 12/08/17 12/08/17 12/08/17 07:00 15:00 23:00 07:00 15:00 23:00 Intake Total 560 ml 1440 ml 240 ml Output Total 675 ml 1275 ml 500 ml Balance -115 ml 165 ml -260 ml Intake Oral 560 ml 1440 ml 240 ml Output Urine Total 675 ml 1275 ml 500 ml Physical Exam GENERAL: Elderly male in no apparent distress SKIN: Warm and dry. HEAD: Atraumatic. Normocephalic. EYES: No injection or drainage. ENT: No nasal bleeding or discharge. Mucous membranes pink and moist. NECK: Trachea midline. No JVD. CARDIOVASCULAR: Regular rate and rhythm. Telemetry shows SR HR 59 RESPIRATORY: Diminished throughout, on continuous oxygen GASTROINTESTINAL: Abdomen soft, non-tender, nondistended. Hepatic and splenic margins not palpable. MUSCULOSKELETAL: Extremities without clubbing, cyanosis, or edema. No obvious deformities. NEUROLOGICAL: Awake and alert. No obvious cranial nerve deficits. Motor grossly within normal limits. Five out of 5 muscle strength in the arms and legs. Normal speech. PSYCHIATRIC: Appropriate mood and affect; insight and judgment normal. Laboratory Laboratory Tests Test 12/07/17 13:23 Activated Partial Thromboplast Time 27.5 SEC Magnesium Level 2.1 MG/DL Thyroid Stimulating Hormone 3rd Gen 3.010 uIU/ML Imaging Last 72 hours Impressions Chest X-Ray 12/06/17 0000 Signed Impressions: Service Date/Time: Wednesday, December 06, 2017 13:46 - CONCLUSION: No acute disease. Stanton Gurrola MD (Marylin Villasenor) Assessment and Plan Assessment and Plan New Onset atrial fibrillation HTN COPD Plan -Pt converted to SR yesterday. CHADS VASC is 3. He was started on eliquis 5mg PO BID yesterday, and mutlaq 400mg PO BID. Telemetry shows SR HR 59 this AM. He is cleared to discharge home from a cardiac standpoint. Will have him follow up in the office in 1 week. Multaq and eliquis have been called in to patients pharmacy ([facility]) -BP is controlled -Continue home inhalers and continous o2. -Follow up in 1 week. The patient was seen and evaluated by Dr. Hanson who completed face to face encounter and phyical exam and participated in management and decision making. (Marylin Villasenor) Assessment and Plan The exam, history, and the medical decision-making described in the above note were completed with the assistance of the mid-level provider. I reviewed and agree with the findings presented. I attest that I had a [id number] encounter with the patient on the same day, and personally performed and documented my assessment and findings in the medical record. Overall doing much better no cp or sob (Sonia Hanson MD) Marylin Villasenor Dec 08, 2017 10:23 Sonia Hanson MD Dec 08, 2017 11:45
[2017-12-08] MEDS: TIOTROPIUM BROMIDE 18 MCG INH INH SCH (10:31)
[2017-12-08] MEDS: DRONEDARONE 400 MG TAB PO SCH (10:32)
[2017-12-08] MEDS: SODIUM CHLORIDE 0.9% FLUSH 10 ML FLUSH IV FLUSH SCH (10:32)
[2017-12-08] MEDS: DILTIAZEM-CD 180 MG CAP ER PO SCH (10:33)
[2017-12-08] MEDS: APIXABAN 5 MG TABLET PO SCH (10:33)
[2017-12-08] MEDS: ATENOLOL 25 MG TAB PO SCH (10:33)
[2017-12-08] MEDS ORDERED: CARD180C5 PO (12:41)
[2017-12-08] MEDS ORDERED: MULT400T PO (12:41)
[2017-12-08] MEDS ORDERED: ATEN25TA PO (12:41)
--- NOTE | 2017-12-08 12:43 | HHI.DS ---
Discharge Summary Admission Date Dec 06, 2017 at 12:44 Discharge Date: Dec 08, 2017 Admitting Diagnosis (1) Atrial fibrillation with RVR ICD Code: I48.91 - Unspecified atrial fibrillation Procedures none Brief History - From Admission 77-year-old male with history of SVT, hypertension, COPD who presents with a 1 day history of tachycardia, lightheadedness. He is sent in by cardiology as a direct admit for new onset atrial fibrillation. Patient had a colonoscopy yesterday, reportedly had episode of tachycardia in the 130s after procedure, which came down to 90s after taking an extra atenolol. Patient denies any chest pain or shortness of breath. He does feel lightheaded, and somewhat generally fatigued. Denies any fevers, chills, chest pain, nausea, vomiting CBC/BMP: 12/07/17 0336 12/07/17 0336 Significant Findings Laboratory Tests Test 12/06/17 13:44 12/06/17 14:51 12/06/17 17:00 12/06/17 17:21 Monocytes (%) (Auto) 10.8 % (0.0-8.0) Monocytes # (Auto) 1.0 TH/MM3 (0-0.9) Activated Partial Thromboplast Time 24.2 SEC (24.3-30.1) Urine Mucus FEW /lpf (OCC) Prothrombin Time 12.2 SEC (9.8-11.6) Test 12/06/17 21:22 12/07/17 03:36 12/07/17 13:23 Activated Partial Thromboplast Time 81.9 SEC (24.3-30.1) 64.7 SEC (24.3-30.1) Aspartate Amino Transf (AST/SGOT) 41 U/L (15-37) Estimat Glomerular Filtration Rate 72 ML/MIN (>89) 76 ML/MIN (>89) Monocytes (%) (Auto) 10.6 % (0.0-8.0) Total Protein 6.1 GM/DL (6.4-8.2) Albumin 3.3 GM/DL (3.4-5.0) PE at Discharge GENERAL: Obese, well-developed patient. SKIN: Warm and dry. HEAD: Normocephalic. EYES: No scleral icterus. No injection or drainage. NECK: Supple, trachea midline. No JVD or lymphadenopathy. CARDIOVASCULAR: Regular rate and rhythm without murmurs, gallops, or rubs. RESPIRATORY: Breath sounds equal bilaterally. No accessory muscle use. GASTROINTESTINAL: Abdomen soft, non-tender, nondistended. EXTREMITIES: No cyanosis, or edema. NEUROLOGICAL: Awake, alert, and oriented x 3. Non-focal. Hospital Course 77-year-old male with a history of SVT and possible atrial fibrillation in the past. He presented to the ER and atrial fibrillation with RVR. He responded to treatment with heparin drip and IV Cardizem. He was transitioned to p.o. Cardizem, metoprolol, Multitaq. He has remained stable with these oral medications for the last 24 hours. He has been cleared by cardiology for discharge home and will be following up with cardiology in 1 week. Pt Condition on Discharge: Good Discharge Disposition: Discharge Home Discharge Time: <= 30 minutes Discharge Instructions DIET: Follow Instructions for: Heart Healthy Diet Activities you can perform: Weight Bearing as Tc Butterfield MD Dec 08, 2017 12:43
[2017-12-08] MEDS ORDERED: APIX5TAB PO (12:58)
== END 2017-12-08 14:29 | disposition home or self-care (01) | DRG 310 ==
LOC: HCIS 12:44
PROVIDERS: ADMIT Family Medicine; ATTEND Family Medicine
DX: I48.91 Unspecified atrial fibrillation (principal); Z99.81 Dependence on supplemental oxygen; J44.9 Chronic obstructive pulmonary disease, unspecified; I10 Essential (primary) hypertension; E78.5 Hyperlipidemia, unspecified; H54.40 Blindness, one eye, unspecified eye; G47.00 Insomnia, unspecified; I71.4 Abdominal aortic aneurysm, without rupture; E66.9 Obesity, unspecified; Z68.29 Body mass index [BMI] 29.0-29.9, adult; Z79.82 Long term (current) use of aspirin; Z85.828 Personal history of other malignant neoplasm of skin; Z86.010 Personal history of colon polyps; Z87.891 Personal history of nicotine dependence; Z85.72 Personal history of non-Hodgkin lymphomas; Z98.1 Arthrodesis status
CPT/HCPCS: 71045; 80053; 81001; 82948; 83735; 84443; 85025; 85027; 85610; 85730; 93005; J1644